=== PATIENT | male | born 1935 | race Caucasian/White ===

== ENCOUNTER 2019-03-21 14:04 | Inpatient (IN) | payer MEDICARE ==
[~2019-03-21] VITALS: Ht 172.7 cm; Wt 55.0 kg
[~2019-03-21 14:04] MED LIST: ASPI-1009 PO; LOVA40TA2 PO
[2019-03-21 15:21] LABS: BASOPHILS % (AUTO) 0.2 % (0-1); EOSINOPHILS % (AUTO) 0.1 % (0-6); HEMATOCRIT 29.7 % (42.0-52.0); HEMOGLOBIN 9.9 g/dl (14.0-17.9); LYMPHOCYTES # (AUTO) 1.3 X10'3 (1.1-4.8); LYMPHOCYTES % (AUTO) 5.9 % (21-51); MEAN CORPUSCULAR HEMOGLOBIN 29.7 PG (27.0-31.0); MEAN CORPUSCULAR HGB CONC 33.2 g/dL (33.0-36.5); MEAN CORPUSCULAR VOLUME 89.4 FL (78-98); MEAN PLATELET VOLUME 7.6 FL (7.4-10.4); MONOCYTES # (AUTO) 2.1 X10'3 (0-0.9); MONOCYTES % (AUTO) 9.5 % (2-12); NEUTROPHILS # (AUTO) 18.9 X10'3 (1.8-7.7); NEUTROPHILS % (AUTO) 84.3 % (42-75); PLATELET COUNT 239 X10'3 (140-440); RED BLOOD COUNT 3.32 X10'6 (4.70-6.10); RED CELL DISTRIBUTION WIDTH 16.2 % (11.5-14.5); WHITE BLOOD COUNT 22.5 X10'3 (4.5-11.0)
[2019-03-21 15:47] LABS: ALANINE AMINOTRANSFERASE 11 U/L (12-78); ALBUMIN 2.6 G/DL (3.4-5.0); ALBUMIN/GLOBULIN RATIO 0.7 (1.1-1.5); ALKALINE PHOSPHATASE 78 IU/L (46-116); ANION GAP 8 (8-16); ASPARTATE AMINO TRANSFERASE 39 U/L (10-37); BILIRUBIN,TOTAL 1.7 MG/DL (0.1-1.0); BLOOD UREA NITROGEN 51 MG/DL (7-18); CALCIUM 8.6 MG/DL (8.5-10.1); CHLORIDE 103 MMOL/L (99-107); CREATININE 2.22 MG/DL (0.60-1.10); POTASSIUM 4.3 MMOL/L (3.5-5.1); SODIUM 137 MMOL/L (135-145); TOTAL CARBON DIOXIDE 25.9 MMOL/L (24-32); TOTAL PROTEIN 6.1 G/DL (6.4-8.2); eGFR 28 ML/MIN
[2019-03-21 15:48] LABS: GLUCOSE 108 MG/DL (70-104)
[2019-03-21] MEDS ORDERED: CefTRIAXone/D5W-Rocephin 1gm 50 ML IV ONE (16:05)
[2019-03-21 16:07] LABS: ANISOCYTOSIS 1+; PLATELET ESTIMATE NORMAL; TOTAL CELLS COUNTED 100
[2019-03-21] MEDS ORDERED: normal saline 1000ML IV soln IV ONE (16:15)
[2019-03-21] MEDS ORDERED: normal saline 1000ML IV soln IVB ONE ×2 (17:20→19:00)
--- NOTE | 2019-03-21 18:20 | NUR ---
DR SANCHEZ NOTIFIED PT SBP 90S AND LAST BP 91/48, DR SANCHEZ STATES SPOKE WITH DR ESCOBEDO AND LONG PT SBP MAINTAINS IN THE 90S PT IS FINE TO BE ADMITTED TO PCU AND IF SBP DROPS BELOW 90 THEN WILL CONSIDERED PRESSERS. PT TO FINISHED 3 LITER BOLUS NS PER ORDERS.
[2019-03-21] MEDS ORDERED: magnesium hydroxide 30ml (MOM) UD suspension PO PRN (20:30)
[2019-03-21] MEDS ORDERED: potassium CL 10mEq/100ml bag 100 ML IV PRN ×2 (20:30)
[2019-03-21] MEDS ORDERED: magnesium Cl slow-release 64mg tablet PO PRN (20:30)
[2019-03-21] MEDS ORDERED: potassium Cl 20 mEq SR tablet PO PRN ×2 (20:30)
[2019-03-21] MEDS ORDERED: acetaminophen 325mg tablet PO PRN (20:30)
[2019-03-21] MEDS ORDERED: mag hydrox/Alum hydrox/simeth 30ml oral suspension PO PRN (20:30)
[2019-03-21] MEDS ORDERED: ondansetron/PF 4mg/2ml inj IV PRN (20:30)
[2019-03-21] MEDS ORDERED: magnesium 2GM in 50ml NS 50 ML IV PRN (20:30)
[2019-03-21] MEDS ORDERED: magnesium 4gm in 100ml NS 100 ML IV PRN (20:30)
[2019-03-21] MEDS: normal saline 1000ml 1,000 ML IV SCH (20:35)
[2019-03-21] MEDS ORDERED: azithromycin/NS 500mg/250ml 250 ML IV ONE (20:45)
--- NOTE | 2019-03-21 21:10 | NUR ---
Patient in room ED 7. I have received report from Butch, ED RN and had the opportunity to ask questions and assume patient care.
[2019-03-21 21:16] LABS: CLARITY,URINE CLEAR (Clear); COLOR,URINE YELLOW (Yellow); GLUCOSE, URINE NEGATIVE (Neg); KETONES,URINE NEGATIVE (Neg); LEUKOCYTE ESTERASE ,URINE NEGATIVE (Neg); NITRITES, URINE NEGATIVE (Neg); OCCULT BLOOD,URINE TRACE-INTACT (Neg); PH,URINE 5.5 (4.8-8.0); PROTEIN,URINE 30 mg/dl (Neg); UROBILINOGEN,URINE 0.2 E.U/dL (0.2-1.0)
[2019-03-21 21:19] LABS: UA COLLECTION TYPE CLN CATCH MIDSTREAM
[2019-03-21 21:23] LABS: RBC,URINE 0-2 /HPF (0-2); WBC,URINE NONE SEEN /HPF (0-4)
[2019-03-21 21:24] LABS: BACTERIA,URINE FEW /HPF (Neg); FINE GRANULAR CAST 0-3 /LPF (NEGATIVE); MUCUS STRANDS FEW /LPF (Neg); SQUAMOUS EPITHELIAL CELL,UR NONE SEEN /LPF (FEW)
[2019-03-21 21:25] VITALS: BP 92/56
[2019-03-22 00:15] VITALS: BP 93/51
[2019-03-22 03:08] LABS: ALANINE AMINOTRANSFERASE 15 U/L (12-78); ALBUMIN 1.9 G/DL (3.4-5.0); ALBUMIN/GLOBULIN RATIO 0.6 (1.1-1.5); ALKALINE PHOSPHATASE 67 IU/L (46-116); ANION GAP 6 (8-16); ASPARTATE AMINO TRANSFERASE 39 U/L (10-37); BLOOD UREA NITROGEN 46 MG/DL (7-18); BUN/CREATININE RATIO 31.1 (5.4-32.0); CALCIUM 7.6 MG/DL (8.5-10.1); CHLORIDE 110 MMOL/L (99-107); CREATININE 1.48 MG/DL (0.60-1.10); GLUCOSE 96 MG/DL (70-104); POTASSIUM 4.2 MMOL/L (3.5-5.1); SODIUM 140 MMOL/L (135-145); TOTAL CARBON DIOXIDE 23.6 MMOL/L (24-32); TOTAL PROTEIN 4.9 G/DL (6.4-8.2); eGFR 45 ML/MIN
[2019-03-22 03:10] LABS: CHOL/HDL RATIO 2.7 (0.00-4.99); CHOLESTEROL 59 MG/DL (0-200); HDL CHOLESTEROL 22 MG/DL (35-60); LDL CHOLESTEROL 19 MG/DL (50-100); MAGNESIUM 1.5 MG/DL (1.5-2.4); TRIGLYCERIDES 52 MG/DL (20-135)
[2019-03-22 05:13] LABS: BASOPHILS % (AUTO) 0.1 % (0-1); EOSINOPHILS % (AUTO) 0 % (0-6); HEMATOCRIT 25.5 % (42.0-52.0); HEMOGLOBIN 8.4 g/dl (14.0-17.9); LYMPHOCYTES # (AUTO) 1.6 X10'3 (1.1-4.8); LYMPHOCYTES % (AUTO) 9.8 % (21-51); MEAN CORPUSCULAR HGB CONC 32.8 g/dL (33.0-36.5); MEAN CORPUSCULAR VOLUME 88.5 FL (78-98); MEAN PLATELET VOLUME 7.7 FL (7.4-10.4); MONOCYTES # (AUTO) 1.3 X10'3 (0-0.9); MONOCYTES % (AUTO) 7.9 % (2-12); NEUTROPHILS % (AUTO) 82.2 % (42-75); PLATELET COUNT 183 X10'3 (140-440); RED BLOOD COUNT 2.88 X10'6 (4.70-6.10); WHITE BLOOD COUNT 15.8 X10'3 (4.5-11.0)
--- NOTE | 2019-03-22 06:31 | NUR ---
Problems reprioritized. Patient report given, questions answered & plan of care reviewed with CATHIE Reid.
--- NOTE | 2019-03-22 06:32 | NUR ---
Patient in room [facility]. I have received report from CATHIE Sheffield and had the opportunity to ask questions and assume patient care.
[2019-03-22 07:24] VITALS: BP 96/51
[2019-03-22] MEDS: K and/or MAG REPLACEMENT MC SCH (08:00)
[2019-03-22] MEDS ORDERED: CefTRIAXone/D5W-Rocephin 1gm 50 ML IV SCH (08:00)
[2019-03-22] MEDS: heparin, porcine 5000 units/ml vial SQ SCH ×2 (08:08→19:14)
[2019-03-22] MEDS: azithromycin/NS 500mg/250ml 250 ML IV SCH (09:14)
--- NOTE | 2019-03-22 09:53 | NUR ---
Primary RN notified that pt is tearful in room. Pt states 'I want to go home, I don't want to here in the hospital'. , Sofiya, was called to notify of pt statement and discuss his plan of care. Family meeting with hospitalist and wind site manager to occur when comes to hospital today.
[2019-03-22 13:00] VITALS: BP 97/52
--- NOTE | 2019-03-22 15:29 | NUR ---
Pt c/o sharp stabbing chest pain, vitals as follow: BP 110/59, HR 79, RESP 16, 97% on 2L nasal canula. Pt A/Ox4, denies SOB. EKG obtained. Hospitalist notified.
[2019-03-22] MEDS: normal saline 1000ml 1,000 ML IV SCH ×2 (15:48→16:28)
--- NOTE | 2019-03-22 17:03 | NUR ---
Malnutrition Consult: Pt admit w/ severe sepsis from unknown source likely respiratory; MATTY and dehydration secondary to sepsis per MD note. Hx lung CA w/ partial removal R lung, SD, and CABG. Pt reports no wt change; maintains low wt at home and "has been wt his whole life." Pt refused breakfast today and only PO mashed potatoes. Pt reports prior wt 40 years ago before he quit smoking was 160# but no new relevant wts. No scaled wt this admit as well for accurate wt hx. Pt is visibly underweight and has visible severe muscle/fat wasting w/ temporal/clavicle indentations evident. RD provided pt w/ written/verbal malnutrition and verbal high protein diet eds w/ RD contact information. Pt is agreeable to chocolate ensure pudding TIDWM; dietary notified. [facility] 03/21. Will continue to monitor. Rec: 1. continue regular diet; encourage PO 2. chocolate ensure pudding TIDWM 3. routine bowel care 4. weekly wts Addendum: 03/22/19 at [address] Amended: Links added.
[2019-03-22] MEDS ORDERED: nitroGLYCERIN 0.4mg SUBLingual tab SL PRN (17:45)
[2019-03-22 18:00] VITALS: BP 103/48
--- NOTE | 2019-03-22 18:54 | NUR ---
Problems reprioritized. Patient report given, questions answered & plan of care reviewed with CATHIE Priest.
[2019-03-22] MEDS: lactobacillus rhamnosus 10,000 MMU CELLS/CAPSULE PO SCH (19:11)
[2019-03-22] MEDS ORDERED: CefTRIAXone/D5W-Rocephin 1gm 50 ML IV ONE (20:00)
[2019-03-22] MEDS ORDERED: atorvastatin 10mg tablet PO SCH (21:00)
[2019-03-23] VITALS: BP 101/52
[2019-03-23] MEDS: normal saline 1000ml 1,000 ML IV SCH ×2 (02:28→05:55)
[2019-03-23 05:08] LABS: BASOPHILS % (AUTO) 0.1 % (0-1); EOSINOPHILS # (AUTO) 0.1 X10'3 (0-0.9); EOSINOPHILS % (AUTO) 0.5 % (0-6); HEMOGLOBIN 8.5 g/dl (14.0-17.9); LYMPHOCYTES # (AUTO) 1.2 X10'3 (1.1-4.8); LYMPHOCYTES % (AUTO) 8.9 % (21-51); MEAN CORPUSCULAR HEMOGLOBIN 29.2 PG (27.0-31.0); MEAN CORPUSCULAR HGB CONC 32.6 g/dL (33.0-36.5); MEAN CORPUSCULAR VOLUME 89.7 FL (78-98); MEAN PLATELET VOLUME 7.9 FL (7.4-10.4); MONOCYTES # (AUTO) 1.2 X10'3 (0-0.9); MONOCYTES % (AUTO) 8.4 % (2-12); NEUTROPHILS # (AUTO) 11.4 X10'3 (1.8-7.7); NEUTROPHILS % (AUTO) 82.1 % (42-75); PLATELET COUNT 194 X10'3 (140-440); RED CELL DISTRIBUTION WIDTH 16.2 % (11.5-14.5); WHITE BLOOD COUNT 13.9 X10'3 (4.5-11.0)
[2019-03-23 05:34] LABS: ALANINE AMINOTRANSFERASE 14 U/L (12-78); ALBUMIN 1.7 G/DL (3.4-5.0); ALBUMIN/GLOBULIN RATIO 0.6 (1.1-1.5); ALKALINE PHOSPHATASE 72 IU/L (46-116); ANION GAP 7 (8-16); ASPARTATE AMINO TRANSFERASE 26 U/L (10-37); BILIRUBIN,TOTAL 0.6 MG/DL (0.1-1.0); BLOOD UREA NITROGEN 38 MG/DL (7-18); CALCIUM 7.9 MG/DL (8.5-10.1); CHLORIDE 110 MMOL/L (99-107); CREATININE 0.95 MG/DL (0.60-1.10); GLUCOSE 88 MG/DL (70-104); MAGNESIUM 1.7 MG/DL (1.5-2.4); POTASSIUM 3.6 MMOL/L (3.5-5.1); SODIUM 141 MMOL/L (135-145); TOTAL CARBON DIOXIDE 23.6 MMOL/L (24-32); TOTAL PROTEIN 4.6 G/DL (6.4-8.2); eGFR 76 ML/MIN
--- NOTE | 2019-03-23 06:11 | NUR ---
Patient in room [facility]. I have received report from CATHIE Priest and had the opportunity to ask questions and assume patient care.
--- NOTE | 2019-03-23 06:16 | NUR ---
report given to CATHIE Reid
[2019-03-23 07:00] VITALS: BP 116/63
[2019-03-23] MEDS ORDERED: CefTRIAXone 2gm/D5W 50ml 50 ML IV SCH (08:00)
[2019-03-23] MEDS: K and/or MAG REPLACEMENT MC SCH (08:00)
[2019-03-23] MEDS ORDERED: aspirin 81mg tablet.DR PO SCH (08:00)
[2019-03-23] MEDS: lactobacillus rhamnosus 10,000 MMU CELLS/CAPSULE PO SCH (08:20)
[2019-03-23] MEDS: heparin, porcine 5000 units/ml vial SQ SCH (08:22)
[2019-03-23] MEDS ORDERED: acetaminophen 325mg tablet PO PRN (08:45)
[2019-03-23] MEDS ORDERED: HYDROcodone/acetaminophen 5mg/325mg tablet PO PRN (08:45)
--- NOTE | 2019-03-23 08:52 | NUR ---
PAGED DR TO GET ORDER FOR PAIN MED. PER GIVE TYLENOL FIRST FOR PAIN. HE GAVE ORDER FOR 5 NORCO PRN IF TYLENOL DOES NOT WORK.
[2019-03-23] MEDS: azithromycin/NS 500mg/250ml 250 ML IV SCH (10:03)
[2019-03-23 11:00] VITALS: BP 105/57
--- NOTE | 2019-03-23 13:22 | NUR ---
O2 Sat at rest on room air:___% If below 89%: Recovery O2 Sat at rest on __LPM:___%:___% via (mask/nasal cannula, etc..) No further documentation is necessary. If O2 Sat did not drop below 89% on room air,ambulate patient on room air. O2 Sat while ambulating on room air:_79__% Recovery O2 Sat while ambulating on _2__LPM:__91_% No further documentation is necessary. If patient does not drop below 89% while ambulating, he/she does not qualify for home O2.
--- NOTE | 2019-03-23 13:31 | NUR ---
PT QUALIFIES FOR HOME O2. SENT MESSAGE TO CM AT 1330. PT IS TO BE DISCHARGED TODAY
[2019-03-23] MEDS ORDERED: AZIT-63 PO (14:30)
[2019-03-23] MEDS ORDERED: CEFD300C3 PO (14:30)
--- NOTE | 2019-03-23 15:42 | NUR ---
Pt discharged to home with all belongings, accompanied by . Home oxygen delivered to beside prior to discharge. Discharge instructions and medications reviewed, new prescriptions e-scripted to [facility]. IV DC'd, cannula intact. Pt instructed to follow up with PCP as soon as he obtains one. Pt escorted to front lobby via wheelchair by PCT.
[2019-03-24] MEDS ORDERED: azithromycin 250mg tablet PO SCH (08:00)
--- NOTE | 2019-03-24 10:23 | NUR ---
Patients Sofiya called stated patient antibiotics were not called into pharmacy. Caller would like to Rx called into [facility] on [address]. I called Rx into Shanika at the pharmacy and she said it should be ready in about 30 min. Called Enrique back and she is aware.
== END 2019-03-23 15:45 | disposition home or self-care (01) | DRG 871 ==
LOC: ER 14:05 → UNDOADMIN 20:28 → ED HOLD 20:28 → SUR 3N 21:20
PROVIDERS: ADMIT Internal Medicine; ATTEND Hospitalist
DX: A41.9 Sepsis, unspecified organism (principal); J18.9 Pneumonia, unspecified organism; N17.9 Acute kidney failure, unspecified; I24.8 Other forms of acute ischemic heart disease; R09.02 Hypoxemia; R65.20 Severe sepsis without septic shock; E78.00 Pure hypercholesterolemia, unspecified; I25.10 Atherosclerotic heart disease of native coronary artery without angina pectoris; I25.2 Old myocardial infarction; Z79.82 Long term (current) use of aspirin; Z85.118 Personal history of other malignant neoplasm of bronchus and lung; Z87.891 Personal history of nicotine dependence; Z90.2 Acquired absence of lung [part of]; Z95.1 Presence of aortocoronary bypass graft
CPT/HCPCS: 36415; 71046; 80053; 80061; 81001; 82948; 83605; 83735; 84145; 84484; 85025; 87040; 87077; 87081; 87186; 93005; 96365; 97161; 97530; 99291; G0378; J0456; J0696; J1644; J2405; J7030